=== PATIENT | male | born 1960 | race Caucasian/White ===

== ENCOUNTER → 2016-11-15 | Outpatient (CLI) | payer OTHER ==
--- NOTE | 2016-11-15 09:28 | RAD ---
Three-view lumbar spine series History: Sciatica. Low back pain for past 5 years. Findings: Mild rotatory levoscoliosis is seen. The transverse processes are intact. No compression fracture or discitis or osteolytic process is seen. No anterolisthesis is seen. There is moderate degenerative disc space narrowing and mild degenerative endplate spurring at L4-5. IMPRESSION: No acute compression fracture. Degenerative lumbar spondylosis at L4-5.
== END | disposition home or self-care (01) ==
LOC: RAD 08:39
PROVIDERS: ATTEND Neuromusculoskeletal Medicine, Sports Medicine
DX: M47.896 Other spondylosis, lumbar region (principal)
CPT/HCPCS: 72100

== ENCOUNTER 2021-05-22 04:44 | Emergency (ER) | payer OTHER ==
[~2021-05-22] VITALS: Ht 165.1 cm; Wt 54.5 kg
--- NOTE | 2021-05-22 05:08 | PHYS DOC ---
Past Medical History Past Medical History: COPD Past Surgical History: No Surgical History Smoking Status: Current Every Day Smoker Alcohol Use: None Drug Use: None General Adult EDM: Chief Complaint: SHORTNESS OF BREATH HPI: HPI: 61-year-old male with history of COPD and current everyday smoking presents to [facility] emergency department complaining of shortness of breath and cough which is typical for his seasonal COPD exacerbations when the weather changes to the cold. He is also out of his blood pressure medicine, lisinopril 10 mg daily, and is requesting refill. He denies any change from his chronic COPD exacerbation. He has been vaccinated for Covid with the [place] vaccine. The patient denies nausea, vomiting, fever, chills, chest pain abdominal pain, urinary symptoms, recent trauma, or any other complaints. Review of Systems: Review of Systems: ROS is otherwise negative except for what was mentioned in HPI Heart Score: C/O Chest Pain: No Physical Exam: PE: Constitutional: No acute distress, non-toxic appearance. HENT: Atraumatic, bilateral external ears normal, nose normal. Eyes: PERRLA, EOMI, conjunctiva normal, no discharge. Neck: Normal range of motion, supple, no stridor. Cardiovascular: Heart rate regular rhythm. 2+ radial pulses Lungs & Thorax: No respiratory distress, symmetrical expansion. Bilateral breath sounds clear to auscultation Abdomen: Soft, no tenderness Skin: Warm, dry. Extremities: No tenderness, no cyanosis, ROM intact, no edema. Neurologic: Alert and oriented X 3, normal motor function, normal sensory function, no focal deficits noted. Non ataxic gait. GCS 15. Psychologic: Affect normal, judgment normal, mood normal. Current Patient Data: Vital Signs: Vital Signs Date Time Temp Pulse Resp B/P (MAP) Pulse Ox O2 Delivery O2 Flow Rate FiO2 05/22/21 05:27 95 Room Air Course & Med Decision Making: Course & Med Decision Making Patient improved after breathing treatment, prescription sent to the pharmacy, he is comfortable to plan for discharge to home and is very stable clinically. Departure Departure Impression: Primary Impression: COPD exacerbation Additional Impression: Hypertension Disposition: HOME / SELF CARE / HOMELESS Condition: IMPROVED Referrals: NO PCP (PCP) Patient Instructions: Chronic Obstructive Pulmonary Disease Exacerbation, [id number] Additional Instructions: You were seen in the emergency department for a COPD exacerbation. Please continue your current regimen for symptom control and if prescribed any medications during your ED visit today, take them as prescribed until completion or your primary doctor changes your medications. 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 Return to the ED if you develop worsening cough, shortness of breath, fever > 101, chest pain, or any other new or concerning symptoms. You have been given a prescription for lisinopril, prednisone, albuterol. 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 Scripts Albuterol Sulfate (Proair Hfa) 8.5 Gm Hfa.aer.ad 2 PUFF IH PRN Q4-6HRS PRN for wheezing for 21 Days, #1 INHALER 0 Refills Prov: TAMY COKER DO 05/22/21 Lisinopril (LISINOPRIL) 10 Mg Tablet 1 TAB PO DAILY, #30 TAB 0 Refills Prov: TAMY COKER DO 05/22/21 Prednisone (PREDNISONE) 50 Mg Tablet 1 TAB PO DAILY, #5 TAB Prov: TAMY COKER DO 05/22/21 TAMY COKER DO May 22, 2021 05:08
[2021-05-22] MEDS ORDERED: PRED50TA PO (05:11)
[2021-05-22] MEDS ORDERED: ALBU2.5V8 IH (05:11)
[2021-05-22] MEDS ORDERED: LISI10TA16 PO (05:11)
[2021-05-22] MEDS ORDERED: IPRATRPIUM/ALBUTEROL 0.5/2.5MG 3 ML NEBU. NEB ONE (05:15)
[2021-05-22] MEDS ORDERED: predniSONE 10 MG TABLET PO ONE (05:15)
[2021-05-22 05:30] VITALS: BP 152/90
== END 2021-05-22 06:35 | disposition home or self-care (01) ==
LOC: ER 04:44
DX: J44.1 Chronic obstructive pulmonary disease with (acute) exacerbation (principal); I10 Essential (primary) hypertension; F17.200 Nicotine dependence, unspecified, uncomplicated
CPT/HCPCS: 94640; 99283; J7512